=== PATIENT | male | born 1995 | race Caucasian/White ===

== ENCOUNTER 2019-05-24 03:31 | Emergency (ER) | payer BC ==
[~2019-05-24] VITALS: Ht 180.3 cm; Wt 77.1 kg
--- NOTE | 2019-05-24 03:41 | NUR ---
Patient to ER bed 3 to gown for evaluation. Side rails up. Report given to NIKOLE Mcdermott.
[2019-05-24 03:44] VITALS: BP_SYST 147
--- NOTE | 2019-05-24 03:48 | NUR ---
Pt BIB family to ED C/O right ear pain for a few hours. Per pt, feels like he cannot hear out it and feels as if it is "clogged." No other injuries and or complaints noted VSS no s/s of acute distress Resting on gurney rails up
--- NOTE | 2019-05-24 04:15 | NUR ---
Dr. Srinivasan bedside for Pt eval
[2019-05-24 04:50] VITALS: BP_SYST 138
--- NOTE | 2019-05-24 04:50 | NUR ---
Patient given written and verbal discharge instructions and verbalizes understanding. ER MD discussed with patient the results and treatment provided. Patient in stable condition. ID arm band removed. Rx of Debrox given. Patient educated on pain management and to follow up with PMD. Pain Scale 0/10 Opportunity for questions provided and answered. Medication side effect fact sheet provided.
== END 2019-05-24 04:50 | disposition home or self-care (01) ==
LOC: SED 03:31
DX: H61.21 Impacted cerumen, right ear (principal)
CPT/HCPCS: 99282